=== PATIENT | female | born 1965 | race African-American/Black ===

== ENCOUNTER 2016-04-03 09:25 | Day surgery (SDC) | payer OTHER ==
[2016-04-03] MEDS ORDERED: LIDOCAINE HCL/PF 1% SDV 5ML VIAL ONE (10:20)
[2016-04-03] MEDS ORDERED: PROPOFOL 20 ML ONE ×2 (10:21)
[2016-04-03 10:28] VITALS: BMI 49.4
[2016-04-03 11:20] VITALS: TEMP 97.6
[2016-04-03 12:42] VITALS: BP 142/90; PULSE 67
--- NOTE | 2016-04-04 11:55 | PATH ---
Surgical Pathology Report Patient Name: JUAN CARLOS LO [facility]. Rec. #: [id number] /Age/Gender: 1965 (Age: 50) / F Account: [id number] Location: [facility]-ENDOSCOPY Taken: 04/03/2016 Received: 04/03/2016 Reported: 04/04/2016 Physicians: Bartolo Robison M.D. Specimen(s) Received BX DUODENUM Clinical History Occult blood in stool Normal, hiatal hernia, diverticulosis, redundant colon, hemorrhoids Final Diagnosis DUODENUM, BIOPSY: DUODENAL MUCOSA WITH NO PATHOLOGIC CHANGES. NO HISTOLOGIC EVIDENCE OF GLUTEN SENSITIVE ENTEROPATHY (CELIAC SPRUE) IDENTIFIED. Electronically Signed Sami Weir M.D. Gross Description Received in formalin, labeled "biopsy duodenum" is a carlson, irregular portion of soft tissue measuring 0.3 cm. in greatest dimension. The specimen is submitted in toto in one cassette. /04/03/201604/03/2016
== END 2016-04-03 12:42 | disposition home or self-care (01) ==
LOC: JASU-ENDO 09:25
PROVIDERS: ATTEND Internal Medicine Gastroenterology
PROC: 0DJD8ZZ Inspection of Lower Intestinal Tract, Via Natural or Artificial Opening Endoscopic (ICD-10-PCS; 2016-04-03)
PROC: 0DB98ZX Excision of Duodenum, Via Natural or Artificial Opening Endoscopic, Diagnostic (ICD-10-PCS; principal; 2016-04-03 10:30)
DX: K92.1 Melena (principal); K44.9 Diaphragmatic hernia without obstruction or gangrene; K63.89 Other specified diseases of intestine; K64.8 Other hemorrhoids
CPT/HCPCS: 84703; 88305-TC